=== PATIENT | female | born 2000 | race Caucasian/White ===

== ENCOUNTER 2025-04-24 19:31 | Emergency (ER) | payer SELFPAY ==
--- OUTSIDE RECORDS SUMMARY | 2025-04-24 19:37 | XMS REPORT | Continuity of Care Document ---
Author Name Unknown Address [address] [facility] [place] [address] [facility] Address [address] [facility] [place] [address] Care Team Providers Care Tableau Report Developer Name Role Phone PCP, PATIENT DOES NOT HAVE A Primary Care Physic quirino Unavailable DEB ROSA Attending Clinician Unavailable SHER NEELY Attending Clinician Unavailable Deb Carr Attending Clinician [phone] CHARLETTE GUERRERO Attending Clinician Unavailable Charlette Guerrero MD Attending Clinician [phone] TAI Attending Clinician Unavailable Elsie James Attending Clinician [phone] PELON Attending Clinician Unavailable Chari Costa Attending Clinician [phone] TAI Admitting Clinician Unavailable PELON Admitting Clinician Unavailable Payers Payer Name Policy Type Policy Number Effective Date Expirati on Date Source PHCS GENERIC [id number] 2022 00:00:00 [employer] MP [facility] O [employer] 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 94 ON 9 [id number] 2024 00:00:00 [facility] [id number] [place] [id number] 2021 00:00:00 Problems Condition Name Condition Details Condition Category Status Onset Date Resolution Date Last Treatment Date Treating Clinician Comments Source STD (female) STD (female) Disease Active 07-30 00:00: 00 [facility] Encounter to establish care Encounter to establish care Disease Active 07-30 00:00: 00 [facility] Tachycardi a Tachycardi a Disease Active 07-30 00:00: 00 [facility] Chest pain, unspecifie d type Chest pain, unspecifie d type Disease Active 07-09 00:00: 00 [facility] Palpitatio ns Palpitatio ns Disease Active 07-09 00:00: 00 [facility] Allergic rhinitis Allergic Rhinitis Problem Active 2018-12 00:00: 00 [facility] Allergies, Adverse Reactions, Alerts Allergy Name Allergy Type Status Severity Reaction(s) Onset Date Inactive Date Treating Clinician Comments Source BISMUTH SUBSALIC YLATE DRUG INGREDI Active Unknown-Cmnt 07-09 00:00: 00 [facility] Bismuth Subsalic ylate Drug Allergy Active Unknown - See comments 07-09 00:00: 00 [facility] Pepto-bi smol Allergy to substanc e Active [facility] Social History Social Habit Start Date Stop Date Quantity Comments Source Sexual orientation Ashlie clovis Crump - External History of tobacco use Smokes tobacco daily Gertrude Crump - External ASSERTION Not Gertrude Crump - External Alcoholic beverage intake 2024-11-10 00:00:00 2024-11-10 00:00:00 Lifetime non-drinker (finding) Gertrude Crump - External History of Social function 2024-11-10 00:00:00 2024-11-10 00:00:00 Gertrude Curmp - External Tobacco use and exposure 2024-07-30 00:00:00 2024-07-30 00:00:00 Smokeless tobacco non-user [facility] Sex 2024-02-09 09:39:46 2024-02-09 09:39:46 Female (finding) Gertrude Crump - External Sex assigned at 2000 00:00:00 2000 00:00:00 Gertrude Paz Smoking Status Start Date Stop Date Source Current Some Day Smoker [facility] Smokes tobacco daily 2024-11-10 00:00:00 Gertrude Paz Never smoked tobacco [facility] Tobacco smoking consumption unknown [facility] Medications Ordered Medication Name Filled Medication Name Start Date Stop Date Current Medication? Ordering Clinician Indication Dosage Frequency Signature (SIG) Comments Components Source Amoxicillin -Pot Clavulanate 875-125 MG oral Tablet 2023-12 00:00: 00 Yes [id number] 1{tbl} Q.5D Take 1 tablet by mouth 2 times daily. Gertrude vasquez Mupirocin (BACTROBAN) 2 % apply externally Ointment 2023-12 00:00: 00 Yes [id number] 1{appli cation} Q.5D Apply 1 Applicatio n topically 2 times daily. Gertrude vasquez acyclovir 5 % ointment 07-30 00:00: 00 Yes [id number] Apply to area(s) 5 (five) times daily. [facility] propranoloL 10 mg tablet 07-03 00:00: 00 Yes 10mg Take 1 tablet by mouth in the morning and 1 tablet in the evening. [facility] sulfamethox azole 800 mg-trimetho prim 160 mg tablet TAKE 1 TABLET EVERY 12 HOURS BY ORAL ROUTE DIRECTED FOR 7 DAYS. sulfamethox azole 800 mg-trimetho prim 160 mg tablet TAKE 1 TABLET EVERY 12 HOURS BY ORAL ROUTE DIRECTED FOR 7 DAYS. No sulfametho xazole 800 mg-trimeth oprim 160 mg tablet TAKE 1 TABLET EVERY 12 HOURS BY ORAL ROUTE DIRECTED FOR 7 DAYS. [facility] benzonatate 200 mg capsule Take 1 capsule 3 times a day by oral route as needed for 14 days. benzonatate 200 mg capsule Take 1 capsule 3 times a day by oral route as needed for 14 days. No 1capsul e(s) TID benzonatat e 200 mg capsule Take 1 capsule 3 times a day by oral route as needed for 14 days. [facility] azithromyci n 250 mg tablet TAKE 2 TABLETS (500 MG) BY ORAL ROUTE ONCE DAILY FOR 1 DAY THEN 1 TABLET (250 MG) BY ORAL ROUTE ONCE DAILY FOR 4 DAYS azithromyci n 250 mg tablet TAKE 2 TABLETS (500 MG) BY ORAL ROUTE ONCE DAILY FOR 1 DAY THEN 1 TABLET (250 MG) BY ORAL ROUTE ONCE DAILY FOR 4 DAYS No azithromyc in 250 mg tablet TAKE 2 TABLETS (500 MG) BY ORAL ROUTE ONCE DAILY FOR 1 DAY THEN 1 TABLET (250 MG) BY ORAL ROUTE ONCE DAILY FOR 4 DAYS [facility] prednisone 20 mg tablet Take 1 tablet twice a day by oral route for 5 days. prednisone 20 mg tablet Take 1 tablet twice a day by oral route for 5 days. No 1 BID prednisone 20 mg tablet Take 1 tablet twice a day by oral route for 5 days. [facility] azithromyci n 500 mg tablet Take 1 tablet every day by oral route for 5 days. azithromyci n 500 mg tablet Take 1 tablet every day by oral route for 5 days. No 1 Q1D azithromyc in 500 mg tablet Take 1 tablet every day by oral route for 5 days. [facility] Immunizations Ordered Immunization Name Filled Immunization Name Date Status Comments Source DTaP Unknown Completed Gertrude castro - External DTaP Unspecified Unknown Completed Adam Paz HEPATITIS A- PEDI/ADOL Unknown Completed Gertrude Olsen External HIB- Haemophilus Influenzae Type B Unknown Completed Gertrude castro - External Hepatitis B, Adolescent Or Pediatric Unknown Completed Gertrude Olsen External Meningococcal Vaccine- Conjugate(Menactra) Unknown Completed Gertrude painter - External MMR- Measles, Mumps, Rubella Unknown Completed Gertrude Olsen External Pneumococcal Vaccine, Conjugate 7 Unknown Completed Gertrude Olsen External IPV- Inactivated Polio Vaccine Unknown Completed Gertrude Olsen External Tdap- (Boostrix, Adacel) Unknown Completed Gertrude Olsen External Varicella Vaccine Unknown Completed Haseeb Crump - External Tdap- (Boostrix, Adacel) Unknown Completed Gertrude Olsen External Vital Signs Vital Name Observation Time Observation Value Comments S ourrodríguez Diastolic blood pressure 2024-11-10 21:22:00 62 mm[Hg] Gertrude Davidson ld - External Heart rate 2024-11-10 21:22:00 94 /min Chanel Crump - External Respiratory rate 2024-11-10 21:22:00 16 /min Gertrude Crump - External Body height 2024-11-10 21:22:00 167.6 cm Joya Sueold - External Body weight 2024-11-10 21:22:00 52.164 kg Joya ramos Seybold - External BMI 2024-11-10 21:22:00 18.56 kg/m2 Joya ramos Seybjuana - External Oxygen saturation in Arterial blood by Pulse oximetry 2024-11-10 21:22:00 97 /min Gertrude Davidson ld - External Systolic blood pressure 2024-11-10 21:22:00 98 mm[Hg] Gertrude Davidson ld - External Systolic blood pressure 2024-07-30 18:38:00 112 mm[Hg] [facility] Diastolic blood pressure 2024-07-30 18:38:00 85 mm[Hg] [facility] Heart rate 2024-07-30 18:38:00 101 /min [facility] Body temperature 2024-07-30 18:38:00 36.17 Antonia [facility] Respiratory rate 2024-07-30 18:38:00 18 /min [facility] Body height 2024-07-30 18:38:00 165.1 cm [facility] Body weight 2024-07-30 18:38:00 49.896 kg [facility] BMI 2024-07-30 18:38:00 18.30 kg/m2 [facility] Oxygen saturation in Arterial blood by Pulse oximetry 2024-07-30 18:38:00 99 /min [facility] Systolic blood pressure 2024-07-09 14:37:00 109 mm[Hg] [facility] Diastolic blood pressure 2024-07-09 14:37:00 81 mm[Hg] [facility] Heart rate 2024-07-09 14:37:00 96 /min [facility] Body temperature 2024-07-09 14:37:00 36.67 [facility] Body height 2024-07-09 14:37:00 167.6 cm [facility] Body weight 2024-07-09 14:37:00 51.256 kg [facility] BMI 2024-07-09 14:37:00 18.24 kg/m2 [facility] BP Diastolic 2023-03-04 00:00:00 81 mm[Hg] [facility] Height 2023-03-04 00:00:00 66 [in_i] [facility] BMI (Body Mass Index) 2023-03-04 00:00:00 19.6 kg/m2 [facility] BP Systolic 2023-03-04 00:00:00 114 mm[Hg] [facility] Body Weight 2023-03-04 00:00:00 1945.6 [oz_av] [facility] BP Diastolic 2021-12-27 00:00:00 67 mm[Hg] [facility] Height 2021-12-27 00:00:00 66 [in_i] [facility] BMI (Body Mass Index) 2021-12-27 00:00:00 19.6 kg/m2 [facility] BP Systolic 2021-12-27 00:00:00 104 mm[Hg] [facility] Body Weight 2021-12-27 00:00:00 1942.4 [oz_av] [facility] BP Diastolic 2021-08-30 00:00:00 79 mm[Hg] [facility] Height 2021-08-30 00:00:00 66 [in_i] [facility] BMI (Body Mass Index) 2021-08-30 00:00:00 19.6 kg/m2 [facility] BP Systolic 2021-08-30 00:00:00 111 mm[Hg] [facility] Body Weight 2021-08-30 00:00:00 1945.6 [oz_av] [facility] BP Diastolic 2021-02-01 00:00:00 76 mm[Hg] [facility] Height 2021-02-01 00:00:00 66 [in_i] [facility] BMI (Body Mass Index) 2021-02-01 00:00:00 19.9 kg/m2 [facility] BP Systolic 2021-02-01 00:00:00 108 mm[Hg] [facility] Body Weight 2021-02-01 00:00:00 1974.4 [oz_av] [facility] Plan of Care Planned Activity Planned Date Details Comments Source Diagnostic Test Pending 2023-03-04 00:00:00 rapid SARS CoV 2 Ag, QL IA, respiratory specimen [code = rapid SARS CoV 2 Ag, QL IA, respiratory specimen] [facility] Diagnostic Test Pending 2023-03-04 00:00:00 rapid strep group A, throat [code = rapid strep group A, throat] [facility] Instructions [facility] Encounters Start Date/Time End Date/Time Encounter Type Admission Type Attending Clinicians Care Facility Care Department Encounter ID Source 2025-02-01 15:00:00 2025-02-01 15:00:00 Outpatient DEB CHAVARRIA [facility] [id number] [facility] 2024-11-10 15:30:00 2024-11-10 15:30:00 Outpatient SHER NEELY [id number] Gertrude Crump 2024-07-30 13:00:00 2024-07-30 14:30:37 Outpatient DEB CHAVARRIA [facility] [id number] [facility] 2024-07-30 13:00:00 2024-07-30 14:30:37 Office Visit Deb Rosa [facility] [id number] [facility] 2024-07-24 09:00:00 2024-07-24 09:00:00 Outpatient CHARLETTE BOND [facility] [id number] [facility] 2024-07-09 09:00:00 2024-07-09 10:42:27 Outpatient CHARLETTE BOND [facility] [id number] [facility] 2024-07-09 09:00:00 2024-07-09 10:42:27 [facility] [id number] [facility] 2024-07-09 09:00:00 2024-07-09 09:00:00 Outpatient CHARLETTE BOND [facility] [id number] [facility] 2023-12-18 00:00:00 2023-12-18 00:00:00 Outpatient PRIV PRIV [id number] [facility] 2023-03-04 00:00:00 2023-03-04 00:00:00 Outpatient WATERS_S [facility] [id number] 2023-03-04 00:00:00 2023-03-04 00:00:00 Mariana Deluna APRN, MSN, [facility]: [address] [place] [address], [address] [address] , Ph. [facility] [id number] [facility] 2022-02-23 10:25:00 2022-02-23 10:25:00 Outpatient WATERS_S [facility] [id number] 2022-01-01 01:53:00 2022-01-01 01:53:00 Outpatient WATERS_S [facility] [id number] [facility] 2021-12-27 06:00:00 2021-12-27 06:00:00 Outpatient WATERS_S [facility] [id number] [facility] 2021-12-27 00:00:00 2021-12-27 00:00:00 Outpatient James, Elsie [facility] [id number] 2021-12-27 00:00:00 2021-12-27 00:00:00 Elsie James APRN-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 [facility] [id number] [facility] 2021-12-26 11:08:00 2021-12-26 11:08:00 Outpatient WATERS_S [facility] [id number] [facility] 2021-08-30 12:34:00 2021-08-30 12:34:00 Outpatient SCHAUBROECK _L [facility] [id number] [facility] 2021-08-30 00:00:00 2021-08-30 00:00:00 Chari abreu AGNP-C: [address] [facility], [address], [place] [address] , Ph. [facility] [id number] [facility] 2021-08-30 00:00:00 2021-08-30 00:00:00 Outpatient Chari Costa [facility] [id number] 2021-02-01 04:44:00 2021-02-01 04:44:00 Outpatient SCHAUBROECK _L [facility] [id number] [facility] 2021-02-01 00:00:00 2021-02-01 00:00:00 Outpatient Chari Costa [facility] [id number] 2021-02-01 00:00:00 2021-02-01 00:00:00 Chari abreu, AGNP-C: [address] [facility], [address], [place] [address] , Ph. [facility] [id number] [facility] Results Test Description Test Time Test Comments Results Result Co mments Source [facility] Ag [Presence] in Respiratory specimen by Rapid [id number] 11:00:00* Test Item Value Reference Range Interpretation Comme nts SARS CoV 2 (test code = SARS CoV 2) positive [facility] Ag [Presence] in Respiratory specimen by Rapid [id number] 10:46:00* Test Item Value Reference Range Interpretation Comme nts SARS CoV 2 (test code = SARS CoV 2) negative [facility] macro (dipstick) panel - Urine 2021-02-01 15:28:00* Test Item Value Reference Range Interpretation Comme nts Leukocytes (test code = Leukocytes) Large Nitrite (test code = Nitrite) positive Urobilinogen (test code = Urobilinogen) 2 Protein (test code = Protein) 30 pH (test code = pH) 6.5 Blood (test code = Blood) Non-Hemolyzed: Trace Specific Davenport (test code = Specific [place]) 1.005 Ketone (test code = Ketone) Negative Bilirubin (test code = Bilirubin) Negative Glucose (test code = Glucose) Negative Appearance (test code = Appearance) Cloudy Color (test code = Color) Yellow [facility] Ag [Presence] in Respiratory specimen by Rapid [id number] 15:01:00* Test Item Value Reference Range Interpretation Comme nts SARS CoV 2 (test code = SARS CoV 2) negative [facility]
--- NOTE | 2025-04-24 21:06 | RAD REPORT ---
EXAM: Foot Right 3 View HISTORY: PAIN COMPARISON: None FINDINGS: Bones: No acute fracture identified. Alignment:No significant malalignment. Degenerative changes:None significant. Other: n/a IMPRESSION: No acute osseous abnormality.
--- NOTE | 2025-04-24 21:19 | EDPHYS ---
Physician Documentation [facility] Name: Lucio Cruz Age: 24 yrs Sex: Female : 2000 Arrival Date: 04/24/2025 Time: 19:31 Bed 9 Private MD: ED Physician Ramon Salas HPI: 04/24 21:03 This 24 yrs old Female presents to ER via Ambulatory with complaints of Toe sb4 Injury, Foot Pain. 21:03 The patient presents with an injury, pain, that is acute. The complaints affect the sb4 left fifth toe. Context: The problem was sustained at home, resulted from kicked furniture, the patient can fully bear weight, the patient is able to ambulate, Problem is a result from a previous injury: No. Onset: The symptoms/episode began/occurred yesterday. 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 - Infectious Disease History:: Denies. - Social history:: Smoking status: Reported history of juuling and/or vaping. ROS: 21:03 Constitutional: Negative for fever, chills, and weight loss, sb4 21:03 MS/extremity: Positive for injury or acute deformity, contusion, ecchymosis, pain, swelling, tenderness, of the left fifth toe, 21:03 All other systems are negative, Exam: 21:03 Constitutional: This is a well developed, well nourished patient who is awake, alert, sb4 and in no acute distress. Head/Face: Normocephalic, atraumatic. Eyes: Extra-ocular motions intact. Periorbital areas with no swelling, redness, or edema. ENT: Mucous membranes moist. Respiratory: No increased work of breathing, no retractions or nasal flaring. Skin: Warm, dry with normal turgor. Normal color with no rashes, no lesions, and no evidence of cellulitis. 21:03 Musculoskeletal/extremity: Weight bearing: able to fully bear weight, without difficulty, swelling and ecchymosis noted to left 5th toe. full ROM. no numbness/tingling. Vital Signs: 19:43 BP 112 / 90; Pulse 98; Resp 16; Temp 98.3; Pulse Ox 99% ; Weight 68.04 kg; Height 5 ft. dd2 6 in. ; Pain 6/10; 21:44 BP 116 / 84; Pulse 96; Resp 16; Temp 98.2; Pulse Ox 100% ; me1 19:43 Body Mass Index 24.21 (68.04 kg, 167.64 cm) dd2 19:43 Pain Scale: Adult dd2 MDM: 19:49 Medical Screening Exam initiated sb4 21:03 Differential diagnosis: closed fracture, contusion. sb4 21:18 Data reviewed: vital signs, nurses notes, radiologic studies, and as a result, I will sb4 discharge patient. Counseling: I had a detailed discussion with the patient and/or guardian regarding the historical points, exam findings, and any diagnostic results supporting the discharge/admit diagnosis, radiology results, the need for outpatient follow up, for definitive care, to return to the emergency department if symptoms worsen or persist or if there are any questions or concerns that arise at home. Medication response: 04/24 19:51 Order name: Foot Right 3 View XRAY; Complete Time: 21:06 sb4 04/24 21:18 Order name: Misc. Order: alireza tape toe; Complete Time: 21:41 sb4 Administered Medications: 21:41 Drug: HYDROcodone-acetaminophen PO 5 mg-325 mg 1 tabs PO once Route: PO; me1 21:44 Follow up: Response: No adverse reaction; Pain is decreased me1 21:41 Drug: Ketorolac PO 10 mg PO once Route: PO; me1 21:44 Follow up: Response: No adverse reaction; Pain is decreased me1 Disposition: 04/25 05:40 Co-signature as Attending Physician, Ramon Salas MD I agree with the assessment sp4 and plan of care. I reviewed the patient's care provided by the Advanced Practice Provider and agree with the diagnosis and treatment plan. Disposition Summary: 04/24/25 21:19 Discharge Ordered Notes: Location: Home sb4 Problem: new sb4 Symptoms: are unchanged sb4 Condition: Stable sb4 Diagnosis - Contusion of left lesser toe(s) without damage to nail, initial encounter sb4 Followup: sb4 - With: Private Physician - When: As needed - Reason: Recheck today's complaints, Re-evaluation by your physician Discharge Instructions: - Discharge Summary Sheet sb4 - How to Alireza Tape sb4 - Foot Contusion sb4 Forms: - Patient Portal Instructions sb4 - Leadership Thank You Letter sb4 Signatures: Dispatcher [employer] Judith Farooq PA-C PA-C sb4 Ramon Salas MD MD sp4 Carla Anne RN RN me1 RORY GONZALEZ RN RN dd2
--- NOTE | 2025-04-24 21:19 | ER ---
Nurse's Notes [facility] Name: Lucio Cruz Age: 24 yrs Sex: Female : 2000 Arrival Date: 04/24/2025 Time: 19:31 Bed 9 Private MD: Diagnosis: Contusion of left lesser toe(s) without damage to nail, initial encounter Presentation: 04/24 19:43 Chief complaint: Patient states: HIT SMALL TOE ON FURNITURE AND NOW IT'S BRUISED AND dd2 PAINFUL. Coronavirus screen: At this time, the client does not indicate any symptoms associated with coronavirus-19. Ebola Screen: No symptoms or risks identified at this time. Initial Sepsis Screen: Does the patient meet any 2 criteria? No. Patient's initial sepsis screen is negative. Does the patient have a suspected source of infection? No. Patient's initial sepsis screen is negative. Risk Assessment: Do you want to hurt yourself or someone else? Patient reports no desire to harm self or others. Onset of symptoms was April 23, 2025. 19:43 Method Of Arrival: Ambulatory dd2 19:43 Acuity: ARMAND 4 dd2 Triage Assessment: 19:46 General: Appears in no apparent distress. uncomfortable, Behavior is calm, cooperative, dd2 appropriate for age. Pain: Complains of pain in left fifth toe. Derm: Bruising that is dark purple, on left fifth toe. 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 - Infectious Disease History:: Denies. - Social history:: Smoking status: Reported history of juuling and/or vaping. Screenin:00 [facility] [place] ED Fall Risk Assessment (Adult) History of falling in the last 3 months, me1 including since admission No falls in past 3 months (0 pts) Confusion or Disorientation No (0 pts) Intoxicated or Sedated No (0 pts) Impaired Gait No (0 pts) Mobility Assist Device Used No (0 pt) Altered Elimination No (0 pt) Score/Fall Risk Level 0 - 2 = Low Risk Maintained a safe environment, Provided non-skid footwear, Hourly rounding (assess needs \T\ fall precautionary measures) done. Abuse screen: Denies threats or abuse. Nutritional screening: No deficits noted. Tuberculosis screening: No symptoms or risk factors identified. Assessment: 21:00 General: Appears in no apparent distress. Behavior is calm, cooperative, appropriate me1 for age, Reports HIT LEFT SMALL TOE ON FURNITURE AND NOW IT'S BRUISED AND PAINFUL. Pain: Complains of pain in left fifth toe Pain does not radiate. Pain currently is 4 out of 10 on a pain scale. Quality of pain is described as aching, Pain began suddenly, Is continuous. Neuro: Level of Consciousness is awake, alert, obeys commands, Oriented to person, place, time, situation, Appropriate for age. Cardiovascular: Patient's skin is warm and dry. Respiratory: Airway is patent Respiratory effort is even, unlabored, Respiratory pattern is regular, symmetrical. GI: No signs and/or symptoms were reported involving the gastrointestinal system. : No signs and/or symptoms were reported regarding the genitourinary system. EENT: No signs and/or symptoms were reported regarding the EENT system. Derm: Bruising that is dark purple, on left fifth toe. Musculoskeletal: Reports pain in left fifth toe. Injury Description: HIT LEFT SMALL TOE ON FURNITURE AND NOW IT'S BRUISED AND PAINFUL. Vital Signs: 19:43 BP 112 / 90; Pulse 98; Resp 16; Temp 98.3; Pulse Ox 99% ; Weight 68.04 kg; Height 5 ft. dd2 6 in. ; Pain 6/10; 21:44 BP 116 / 84; Pulse 96; Resp 16; Temp 98.2; Pulse Ox 100% ; me1 19:43 Body Mass Index 24.21 (68.04 kg, 167.64 cm) dd2 19:43 Pain Scale: Adult dd2 ED Course: 19:35 Patient arrived in ED. jj6 19:46 Triage completed. dd2 19:46 Arm band placed on right wrist. dd2 19:48 Judith Hayden PA-C is PHCP. sb4 19:48 Ramon Salas MD is Attending Physician. sb4 21:00 Patient has correct armband on for positive identification. Bed in low position. Call me1 light in reach. Side rails up X 1. Provided Education on: POC. Verbalized understanding.. 21:00 No provider procedures requiring assistance completed. Patient did not have IV access me1 during this emergency room visit. 21:02 Foot Right 3 View XRAY In Process Unspecified. EDMS 21:29 Carla Anne, RN is Primary Nurse. me1 Administered Medications: 21:41 Drug: HYDROcodone-acetaminophen PO 5 mg-325 mg 1 tabs PO once Route: PO; me1 :44 Follow up: Response: No adverse reaction; Pain is decreased me1 21:41 Drug: Ketorolac PO 10 mg PO once Route: PO; me1 :44 Follow up: Response: No adverse reaction; Pain is decreased me1 Medication: 21:00 VIS not applicable for this client. me1 Outcome: 21:19 Discharge ordered by . sb4 21:45 Discharged to home ambulatory, with family, me1 :45 Condition: stable 21:45 Discharge instructions given to patient, Instructed on discharge instructions, follow up and referral plans. Demonstrated understanding of instructions, follow-up care, 21:46 Patient left the ED. me1 Signatures: Dispatcher [employer] EDMI Tyler Tania [email or web address] Judith Hayden, PA-C PA-C sb4 Carla Anne, RN RN me1 RORY GONZALEZ RN RN dd2 Corrections: (The following items were deleted from the chart) 21:41 19:43 Chief complaint: Patient states: HIT SMALL TOE ON FURNITURE AND NOW IT'S BRUISED me1 AND PAINFUL. dd2 21:43 21:41 General: me1 me1
[2025-04-24] MEDS ORDERED: KETOROLAC 10 MG TAB ONE (21:34)
[2025-04-24] MEDS ORDERED: HYDROCODONE/APAP 5/325 MG TAB ONE (21:35)
[2025-04-24 22:31] VITALS: BP 116/84; TEMP 98.2; O2SAT 100
== END 2025-04-24 21:46 | disposition home or self-care (01) ==
LOC: ER 19:31
DX: S90.122A Contusion of left lesser toe(s) without damage to nail, initial encounter (principal)
CPT/HCPCS: 99283

== ENCOUNTER 2025-09-23 11:28 | Emergency (ER) | payer SELFPAY ==
[2025-09-23] MEDS ORDERED: NA CHLORIDE 0.9% 1,000 ML ONE (12:36)
[2025-09-23 12:50] LABS: Absolute Lymphocytes (CBC) 1.4 K/uL (0.7-4.9); Hematocrit 38.2 % (36.0-45.0); Hemoglobin 12.8 g/dL (12.0-15.0); MCH 27.5 pg (27.0-35.0); MCHC 33.5 g/dL (32.0-36.0); MCV 82.2 fL (80-100); MPV 7.0 fL (7.6-11.3); Nucleated RBC Absolute Count 0.0 (0-0); Nucleated Red Blood Cells % 0.0 % (0-0); RBC Red Blood Cell Count 4.65 M/uL (3.86-4.86); White Blood Count 9.60 thou/uL (4.3-10.9)
[2025-09-23 13:02] LABS: PT Prothrombin Time 13.6 SECONDS (10-13.0); PTT, Activated Partial Thromb 29.2 SECONDS (27.2-37.4); Protime INR 1.21
[2025-09-23 13:10] LABS: ALT/SGPT 18 U/L (13-56); AST/SGOT < 10 U/L (15-37); Albumin 4.2 g/dL (3.4-5.0); Albumin/Globulin Ratio 1.2 (1.1-1.8); Alkaline Phosphatase 57 U/L (45-117); Anion Gap 10.1 mEq/L (5.0-15.0); BUN Blood Urea Nitrogen 8 mg/dL (7-18); Bilirubin Indirect, Calculated 0.3 mg/dL (0.2-0.8); Globulin 3.4 g/dL (2.3-3.5); Glucose Level 118 mg/dL (74-106); Potassium 4.1 mEq/L (3.5-5.1)
--- NOTE | 2025-09-23 13:12 | ER ---
Nurse's Notes [facility] Name: Lucio Cruz Age: 24 yrs Sex: Female : 2000 Arrival Date: 09/23/2025 Time: 11:28 Bed 16 Private MD: Diagnosis: Schizophrenia, unspecified-with psychosis Presentation: 09/23 12:08 Chief complaint: Patient states: "SOMETIMES I JUST SHAKE". Coronavirus screen: At this bp time, the client does not indicate any symptoms associated with coronavirus-19. Ebola Screen: No symptoms or risks identified at this time. Initial Sepsis Screen: Does the patient meet any 2 criteria? HR > 90 bpm. No. Patient's initial sepsis screen is negative. Does the patient have a suspected source of infection? No. Patient's initial sepsis screen is negative. Risk Assessment: Do you want to hurt yourself or someone else? Patient reports no desire to harm self or others. Note PT IS POOR HISTORIAN, DECLINING TO ANSWER MOST QUESTIONS. DENIES SI/HI, AMBULATORY WITH STEADY GAIT. Onset of symptoms is unknown. 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 - Infectious Disease History:: Denies. - Social history:: Smoking status: unknown. Screenin:51 [facility] ED Fall Risk Assessment (Adult) History of falling in the last 3 months, me1 including since admission No falls in past 3 months (0 pts) Confusion or Disorientation No (0 pts) Intoxicated or Sedated No (0 pts) Impaired Gait No (0 pts) Mobility Assist Device Used No (0 pt) Altered Elimination No (0 pt) Score/Fall Risk Level 0 - 2 = Low Risk Maintained a safe environment, Provided non-skid footwear, Hourly rounding (assess needs \\T\\ fall precautionary measures) done. Abuse screen: Denies threats or abuse. Nutritional screening: No deficits noted. Tuberculosis screening: No symptoms or risk factors identified. Assessment: 12:51 General: Appears in no apparent distress. well groomed, well developed, well nourished, me1 Behavior is cooperative, appropriate for age, flat, just stares at staff when asked questions. . Reports Patient is not answering questions when asked. Sister at bedside and reports patient has a hx of schizophrenia and thinks the patient isn't taking her medications. Brought patient to ER because she had what they think are two seizures last night. Patient had 2 episodes lasting about 1 minute each where patient was shaking. Usually patient goes to [facility] when she "gets like that". Sister is calling the pharmacy to get medication information. Pain: Denies pain. Neuro: Level of Consciousness is awake, alert, obeys commands, obtunded, Oriented to person, place, situation, Appropriate for age. Cardiovascular: Patient's skin is warm and dry. Respiratory: Airway is patent Respiratory effort is even, unlabored, Respiratory pattern is regular, symmetrical. GI: No signs and/or symptoms were reported involving the gastrointestinal system. : No signs and/or symptoms were reported regarding the genitourinary system. EENT: No signs and/or symptoms were reported regarding the EENT system. Derm: Skin is intact, is healthy with good turgor, Skin is normal. Musculoskeletal: Circulation, motion, and sensation intact. Range of motion: intact in all extremities. 15:00 Reassessment: Patient went to restroom, took urine collection cup and wipe with her and me1 she was instructed how to collect the urine. Patient finished in the restroom and said she forgot. Did not collect urine. Dr Swanson informed. 17:09 Reassessment: Patient walked outside with her sister. me1 17:30 Reassessment: Patient is back in room. me1 Vital Signs: 12:08 BP 133 / 82; Pulse 110; Resp 18; Temp 98; Pulse Ox 100% ; bp 13:00 BP 136 / 95; Pulse 140; Resp 20; Pulse Ox 100% ; me1 14:00 BP 127 / 85; Pulse 104; Resp 19; Pulse Ox 100% ; me1 16:00 BP 120 / 83; Pulse 106; Resp 20; Pulse Ox 95% ; me1 17:00 BP 124 / 82; Pulse 108; Resp 18; Pulse Ox 96% ; me1 18:00 BP 124 / 87; Pulse 99; Resp 18; Temp 98.2; Pulse Ox 100% ; me1 Raya Coma Score: 12:51 Eye Response: spontaneous(4). Motor Response: obeys commands(6). Verbal Response: me1 oriented(5). Total: 15. ED Course: 11:37 Patient arrived in ED. cj3 11:38 Robert Swanson MD is Attending Physician. sophie 12:10 Triage completed. bp 12:10 Arm band placed on. bp 12:35 Carla Anne, RN is Primary Nurse. me1 12:48 EKG done, by information technology audit manager. reviewed by Robert Swanson MD. ts3 12:48 Initial lab(s) drawn, by laborer electroplating, sent to lab. Inserted saline lock: 20 gauge in left ts3 antecubital area, using aseptic technique. Blood collected. Flushed with 10 mL NS. 12:51 Patient has correct armband on for positive identification. Bed in low position. Call me1 light in reach. Side rails up X2. Seizure precautions initiated. Provided Education on: POC. Verbalized understanding.. 12:51 No provider procedures requiring assistance completed. me1 13:19 CT Head Brain wo Cont In Process Unspecified. EDMS 13:52 faxed all clinical's to several facilities ( [facility], [facility] [place] [place], and [facility]). [facility] 14:46 Mora at [facility] informed [facility] of no appropriate bed. [facility] 14:48 Flory with [facility] no appropriate beds. [facility] 15:50 faxed all clinical to several facilities ([facility], [address] ). 16:59 IV discontinued, intact, bleeding controlled, No redness/swelling at site. Pressure me1 dressing applied, removed by patient. Administered Medications: 12:50 Drug: NS 0.9% IV 1000 ml IV at 1000 ml once; to be given as a bolus over 60 minutes me1 Route: IV; Rate: 1000 ml; Site: left antecubital; 18:08 Follow up: IV Status: Completed infusion me1 15:17 Drug: Ativan IVP 1 mg IVP once Route: IVP; Site: left antecubital; me1 16:43 Follow up: Response: No adverse reaction; Anxiety decreased me1 Medication: 12:51 VIS not applicable for this client. me1 Outcome: 13:11 ER care complete, transfer ordered by . sophie 17:58 Discharge ordered by MD. sophie 18:13 Discharged to home ambulatory, with family, patient's sister is going to take her to [address] for treatment 18:13 Condition: stable 18:13 Discharge instructions given to patient, family, Instructed on discharge instructions, follow up and referral plans. Demonstrated understanding of instructions, follow-up care, 18:14 Patient left the ED. [facility] Signatures: Dispatcher [employer] Robert Jones MD MD cha Peltier, Brian, RN RN Merline Raines 6 Carla Anne RN RN [facility] Robyn Barr cj3 Aixa Neff ts3
--- NOTE | 2025-09-23 13:12 | EDPHYS ---
Physician Documentation [facility] Name: Lucio Cruz Age: 24 yrs Sex: Female : 2000 Arrival Date: 09/23/2025 Time: 11:28 Bed 16 Private MD: ANTONINO Physician Robert Swanson HPI: 09/23 13:06 This 24 yrs old Female presents to ER via Ambulatory with complaints of sophie Seizure, Manic Episode. 13:06 The patient presents with a history of multiple seizures, a total of 2, the episode(s) sophie was witnessed, by a friend. Character of seizure(s): Loss of consciousness: it is not known if the patient experienced loss of consciousness, Motor activity: generalized, Incontinence: none, Apnea: the patient did not experience apnea, Circulation: the patient did not experience evidence of pulse disturbance. Seizure onset: LAST NIGHT X 2. Context: the seizure(s) was witnessed, by a friend. Seizure Hx: the patient has no previous seizure history. Associated injury: The patient did not suffer any apparent associated injury. Current symptoms: Currently, the patient is not experiencing any symptoms, the patient feels back to baseline. The patient has not experienced similar symptoms in the past. 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 - Infectious Disease History:: Denies. - Social history:: Smoking status: unknown. ROS: 13:07 Constitutional: Negative for fever, chills, and weight loss, Eyes: Negative for injury, sophie pain, redness, and discharge, ENT: Negative for injury, pain, and discharge, Neck: Negative for injury, pain, and swelling, Cardiovascular: Negative for chest pain, palpitations, and edema, Respiratory: Negative for shortness of breath, cough, wheezing, and pleuritic chest pain, Abdomen/GI: Negative for abdominal pain, nausea, vomiting, diarrhea, and constipation, Back: Negative for injury and pain, : Negative for injury, bleeding, discharge, and swelling, MS/Extremity: Negative for injury and deformity, Skin: Negative for injury, rash, and discoloration, Allergy/Immunology: Negative for hives, rash, and allergies, Endocrine: Negative for neck swelling, polydipsia, polyuria, polyphagia, and marked weight changes, Hematologic/Lymphatic: Negative for swollen nodes, abnormal bleeding, and unusual bruising, 13:07 Neuro: Positive for seizure activity, 13:07 Psych: Positive for SCHIZOPHRENIA, Exam: 13:07 Constitutional: This is a well developed, well nourished patient who is awake, alert, sophie and in no acute distress. Head/Face: Normocephalic, atraumatic. Eyes: Pupils equal round and reactive to light, extra-ocular motions intact. Lids and lashes normal. Conjunctiva and sclera are non-icteric and not injected. Cornea within normal limits. Periorbital areas with no swelling, redness, or edema. ENT: Nares patent. No nasal discharge, no septal abnormalities noted. Tympanic membranes are normal and external auditory canals are clear. Oropharynx with no redness, swelling, or masses, exudates, or evidence of obstruction, uvula midline. Mucous membranes moist. Neck: Trachea midline, no thyromegaly or masses palpated, and no cervical lymphadenopathy. Supple, full range of motion without nuchal rigidity, or vertebral point tenderness. No Meningismus. Chest/axilla: Normal chest wall appearance and motion. Nontender with no deformity. No lesions are appreciated. Cardiovascular: Regular rate and rhythm with a normal S1 and S2. No gallops, murmurs, or rubs. Normal PMI, no JVD. No pulse deficits. Respiratory: Lungs have equal breath sounds bilaterally, clear to auscultation and percussion. No rales, rhonchi or wheezes noted. No increased work of breathing, no retractions or nasal flaring. Abdomen/GI: Soft, non-tender, with normal bowel sounds. No distension or tympany. No guarding or rebound. No evidence of tenderness throughout. Back: No spinal tenderness. No costovertebral tenderness. Full range of motion. Skin: Warm, dry with normal turgor. Normal color with no rashes, no lesions, and no evidence of cellulitis. MS/ Extremity: Pulses equal, no cyanosis. Neurovascular intact. Full, normal range of motion., bilateral aka Neuro: Awake and alert, GCS 15, oriented to person, place, time, and situation. Cranial nerves II-XII grossly intact. Motor strength 5/5 in all extremities. Sensory grossly intact. Cerebellar exam normal. Normal gait. 13:07 ECG was reviewed by the Attending Physician. 13:07 Musculoskeletal/extremity: DVT Exam: No signs of deep vein thrombosis. no pain, no swelling, no tenderness, negative Homans' sign noted on exam, no appreciated bluish discoloration, no erythema, no increased warmth, Vital Signs: 12:08 BP 133 / 82; Pulse 110; Resp 18; Temp 98; Pulse Ox 100% ; bp 13:00 BP 136 / 95; Pulse 140; Resp 20; Pulse Ox 100% ; me1 14:00 BP 127 / 85; Pulse 104; Resp 19; Pulse Ox 100% ; me1 16:00 BP 120 / 83; Pulse 106; Resp 20; Pulse Ox 95% ; me1 17:00 BP 124 / 82; Pulse 108; Resp 18; Pulse Ox 96% ; me1 18:00 BP 124 / 87; Pulse 99; Resp 18; Temp 98.2; Pulse Ox 100% ; me1 Raya Coma Score: 12:51 Eye Response: spontaneous(4). Motor Response: obeys commands(6). Verbal Response: me1 oriented(5). Total: 15. MDM: 11:38 Medical Screening Exam initiated sophie 13:09 Differential diagnosis: drug withdrawal. acute psychotic break, depression, psychosis sophie secondary to non-compliance. Differential diagnosis: cerebral vascular accident, drug overdose, cardiac arrhythmia, seizure, TIA. Data reviewed: vital signs, nurses notes, lab test result(s), EKG, radiologic studies, CT scan. Consideration of Admission/Observation Patient was admitted/placed on observation. Escalation of care including admission/observation considered. I considered the following discharge prescriptions or medication management in the emergency department Medications were administered in the Emergency Department. See MAR. Independent interpretation of the following test(s) in the Emergency Department EKG: See my EKG interpretation above. Test considered but Not performed: MRI: NO MRI , NO EEG. Historians other than the Patient: Family Member: SISTER WELL INFORMED. Care significantly affected by the following chronic conditions: SCHIZOPHRENIA. 17:59 ED course: pt denies suicidal ideation, sister insist on taking her home , pt wants to sophie go , will return to the er if condition worsens. 09/23 11:42 Order name: Acetaminophen [facility] 09/23 11:42 Order name: Basic Metabolic Panel [facility] 09/23 11:42 Order name: CBC with Diff; Complete Time: 13:05 [facility] 09/23 11:42 Order name: ETOH Level; Complete Time: 13:05 [facility] 09/23 11:42 Order name: Hepatic Function [facility] 09/23 11:42 Order name: PT-INR; Complete Time: 13:05 [facility] 09/23 11:42 Order name: Ptt, Activated; Complete Time: 13:05 [facility] 09/23 11:42 Order name: Salicylate [facility] 09/23 13:06 Order name: CT Head Brain wo Cont [facility] 09/23 11:42 Order name: EKG - Nurse/Tech; Complete Time: 12:48 [facility] 09/23 11:42 Order name: IV Saline Lock; Complete Time: 12:48 [facility] 09/23 11:42 Order name: Labs collected and sent; Complete Time: 12:48 [facility] EC:07 Rate is 100 beats/min. Rhythm is regular. QRS [place] is Normal. VT interval is normal. sophie QRS interval is normal. QT interval is normal. No Q waves. T waves are Normal. No ST changes noted. Clinical impression: Normal ECG and No evidence of ischemia. Interpreted by me. Reviewed by me. Administered Medications: 12:50 Drug: NS 0.9% IV 1000 ml IV at 1000 ml once; to be given as a bolus over 60 minutes me1 Route: IV; Rate: 1000 ml; Site: left antecubital; 18:08 Follow up: IV Status: Completed infusion me1 15:17 Drug: Ativan IVP 1 mg IVP once Route: IVP; Site: left antecubital; me1 16:43 Follow up: Response: No adverse reaction; Anxiety decreased me1 Disposition Summary: 09/23/25 17:58 Discharge Ordered Notes: Location: Home sophie Problem: an acute exacerbation(09/23/25 17:58) sophie Symptoms: have improved(09/23/25 17:58) sophie Condition: Stable(09/23/25 17:58) sophie Diagnosis - Schizophrenia, unspecified - with psychosis(09/23/25 17:58) sophie Followup: sophie - With: Private Physician - When: Upon discharge from the Emergency Department - Reason: Recheck today's complaints, Continuance of care, Re-evaluation by your physician Discharge Instructions: - Discharge Summary Sheet sophie - Schizophrenia sophie - Supporting Someone With Schizophrenia sophie - Managing Schizophrenia sophie Forms: - Medication Reconciliation Form sophie - Antibiotic Education sophie - Prescription Opioid Use sophie - Patient Portal Instructions sophie - Leadership Thank You Letter sophie Signatures: Dispatcher [employer] Robert Jones MD MD cha Peltier, Brian, RN RN bp Carla Anne RN RN me1 Corrections: (The following items were deleted from the chart) 11:42 11:42 ACETAMINOPHEN+C.LAB.BRZ ordered. EDMS EDMS 11:42 11:42 BASIC METABOLIC PANEL+C.LAB.BRZ ordered. EDMS EDMS 11:42 11:42 CBC+H.LAB.BRZ ordered. EDMS EDMS 11:42 11:42 ETHANOL+C.LAB.BRZ ordered. EDMS EDMS 11:42 11:42 HEPATIC FUNCTION+C.LAB.BRZ ordered. EDMS EDMS 11:42 11:42 PROTIME (+INR)+COAG.LAB.BRZ ordered. EDMS EDMS 11:42 11:42 Test, Urine+UC.LAB.BRZ ordered. EDMS EDMS 11:42 11:42 PTT, ACTIVATED+COAG.LAB.BRZ ordered. EDMS EDMS 11:42 11:42 SALICYLATE+C.LAB.BRZ ordered. EDMS EDMS 11:42 11:42 URINE DRUG SCREEN+UC.LAB.BRZ ordered. EDMS EDMS 11:42 11:42 UA Rfx [place] Cult if indicated+U.LAB.BRZ ordered. EDMS EDMS 13:27 13:11 TO PSYCH [facility] 13:27 13:11 Schizophrenia, unspecified - PHYCOSIS, POORLY COMPLIANT [facility] 17:57 13:11 Psych Facility [facility] 17:57 13:11 Higher level of care [facility] 17:57 13:11 Stable [facility] 17:57 13:11 new [facility] 17:57 13:11 have improved [facility] 17:57 13:27 TO PSYCH [facility] 17:57 13:27 Schizophrenia, unspecified - PHYCHOSIS, POORLY COMPLIANT [facility]
--- NOTE | 2025-09-23 13:34 | RAD REPORT ---
EXAMINATION: Head Brain Wo Cont CLINICAL INDICATION: Female, 24 years old.SEIZURE TECHNIQUE: Axial CT images from the skull base to the vertex without intravenous contrast. Coronal an d sagittal reformatted images were created from the data set. One or more of the following dose reduction techniques were used: Automated exposure control, adjustment of the mA and/or kV according to patient size, and/or iterative reconstruction. Unless otherwise specified, incidental findings do not require dedicated imaging follow-up. [id number]. COMPARISON: No prior exams FINDINGS: INTRACRANIAL: No acute intracranial hemorrhage. No acute large vascular territory infarct. No hydro cephalus. No mass effect or midline shift. No significant white matter disease. VASCULATURE: No visualized abnormalities in the arteries or dural venous sinuses. SCALP/SKULL: No calvarial fracture identified. No acute soft tissue abnormality. SINUSES: The visualized paranasal sinuses are mostly clear. No significant mastoid fluid. IMPRESSION: No acute intracranial abnormality.
[2025-09-23] MEDS ORDERED: LORazepam 2 MG/ML VIAL ONE (15:15)
[2025-09-23 18:37] VITALS: BP 124/87; TEMP 98.2; O2SAT 100
== END 2025-09-23 18:14 | disposition home or self-care (01) ==
LOC: ER 11:28
DX: F20.9 Schizophrenia, unspecified (principal)
CPT/HCPCS: 36415; 70450; 80048; 80076; 80143; 80179; 82077; 85025; 85610; 85730; 93005; 96361; 96374; 99284; J7030